=== PATIENT | male | born 1955 | race Caucasian/White ===

== ENCOUNTER 2019-08-15 10:17 | Emergency (ER) | payer BC ==
[~2019-08-15] VITALS: Ht 175.3 cm; Wt 107.3 kg
[~2019-08-15 10:17] MED LIST: ONDA4TAB12 PO; PANT20TA3 PO
[2019-08-15 11:37] LABS: BASOPHILS # (AUTO) 0.1 X10'3 (0-0.2); EOSINOPHILS # (AUTO) 0.4 X10'3 (0-0.9); EOSINOPHILS % (AUTO) 3.4 % (0-6); HEMATOCRIT 40.5 % (42.0-52.0); LYMPHOCYTES # (AUTO) 1.5 X10'3 (1.1-4.8); LYMPHOCYTES % (AUTO) 14.5 % (21-51); MEAN CORPUSCULAR HEMOGLOBIN 31.7 PG (27.0-31.0); MEAN CORPUSCULAR HGB CONC 34.5 g/dL (33.0-36.5); MEAN PLATELET VOLUME 8.6 FL (7.4-10.4); MONOCYTES # (AUTO) 0.8 X10'3 (0-0.9); MONOCYTES % (AUTO) 8.1 % (2-12); NEUTROPHILS # (AUTO) 7.6 X10'3 (1.8-7.7); PLATELET COUNT 264 X10'3 (140-440); RED BLOOD COUNT 4.41 X10'6 (4.70-6.10); RED CELL DISTRIBUTION WIDTH 13.1 % (11.5-14.5); WHITE BLOOD COUNT 10.4 X10'3 (4.5-11.0)
[2019-08-15 11:55] LABS: ALANINE AMINOTRANSFERASE 48 U/L (12-78); ALBUMIN/GLOBULIN RATIO 1.1 (1.1-1.5); ALKALINE PHOSPHATASE 84 IU/L (46-116); ANION GAP 10 (8-16); ASPARTATE AMINO TRANSFERASE 33 U/L (10-37); BILIRUBIN,TOTAL 0.6 MG/DL (0.1-1.0); BLOOD UREA NITROGEN 25 MG/DL (7-18); CALCIUM 9.2 MG/DL (8.5-10.1); CHLORIDE 106 MMOL/L (99-107); CREATININE 1.78 MG/DL (0.60-1.10); GLUCOSE 106 MG/DL (70-104); LIPASE 151 U/L (73-393); SODIUM 143 MMOL/L (135-145); TOTAL PROTEIN 7.7 G/DL (6.4-8.2); eGFR 39 ML/MIN
[2019-08-15] MEDS ORDERED: normal saline 1000ml 1,000 ML IV ONE (12:50)
[2019-08-15 13:25] LABS: CLARITY,URINE CLEAR (Clear); COLOR,URINE YELLOW (Yellow); GLUCOSE, URINE NEGATIVE (Neg); KETONES,URINE NEGATIVE (Neg); LEUKOCYTE ESTERASE ,URINE NEGATIVE (Neg); NITRITES, URINE NEGATIVE (Neg); OCCULT BLOOD,URINE NEGATIVE (Neg); PROTEIN,URINE NEGATIVE (Neg); UROBILINOGEN,URINE 0.2 E.U/dL (0.2-1.0)
[2019-08-15 13:28] LABS: UA COLLECTION TYPE CLN CATCH MIDSTREAM
[2019-08-15] MEDS ORDERED: HYDROcodone/acetaminophen 5mg/325mg tablet PO ONE (13:55)
[2019-08-15] MEDS ORDERED: ondansetron 4mg rapidly disintigrating tab PO ONE (13:55)
[2019-08-15] MEDS ORDERED: ONDA4TAB6 PO (14:24)
[2019-08-15 14:35] VITALS: BP 135/61
== END 2019-08-15 14:56 | disposition home or self-care (01) ==
LOC: ER 10:18
DX: R10.12 Left upper quadrant pain (principal); R11.2 Nausea with vomiting, unspecified; I10 Essential (primary) hypertension; K21.9 Gastro-esophageal reflux disease without esophagitis; G89.29 Other chronic pain; Z98.890 Other specified postprocedural states; Z79.899 Other long term (current) drug therapy
CPT/HCPCS: 36415; 74176; 80053; 81003; 83690; 85025; 96360; 99284; J7030

== ENCOUNTER 2021-06-18 00:50 | Emergency (ER) | payer BC ==
[~2021-06-18] VITALS: Ht 175.3 cm; Wt 102.3 kg
[~2021-06-18 00:50] MED LIST changes: +ONDA4TAB6 PO; +PANT20TA18 PO; -PANT20TA3 PO
[2021-06-18 01:31] LABS: BASOPHILS # (AUTO) 0.1 X10'3 (0-0.2); BASOPHILS % (AUTO) 0.7 % (0-1); EOSINOPHILS # (AUTO) 0.3 X10'3 (0-0.9); EOSINOPHILS % (AUTO) 2.1 % (0-6); HEMATOCRIT 36.1 % (42.0-52.0); HEMOGLOBIN 12.3 g/dl (14.0-17.9); LYMPHOCYTES # (AUTO) 2.4 X10'3 (1.1-4.8); LYMPHOCYTES % (AUTO) 16.7 % (21-51); MEAN CORPUSCULAR HEMOGLOBIN 30.5 PG (27.0-31.0); MEAN CORPUSCULAR VOLUME 89.6 FL (78-98); MEAN PLATELET VOLUME 7.4 FL (7.4-10.4); MONOCYTES # (AUTO) 1.4 X10'3 (0-0.9); MONOCYTES % (AUTO) 9.7 % (2-12); NEUTROPHILS % (AUTO) 70.8 % (42-75); PLATELET COUNT 332 X10'3 (140-440); RED BLOOD COUNT 4.03 X10'6 (4.70-6.10); RED CELL DISTRIBUTION WIDTH 13.6 % (11.5-14.5); WHITE BLOOD COUNT 14.2 X10'3 (4.5-11.0)
[2021-06-18 01:42] LABS: ALANINE AMINOTRANSFERASE 33 U/L (12-78); ALBUMIN 3.8 G/DL (3.4-5.0); ALBUMIN/GLOBULIN RATIO 1.1 (1.1-1.5); ALKALINE PHOSPHATASE 92 IU/L (46-116); ANION GAP 10 (8-16); ASPARTATE AMINO TRANSFERASE 19 U/L (10-37); BILIRUBIN,TOTAL 0.3 MG/DL (0.1-1.0); BLOOD UREA NITROGEN 32 MG/DL (7-18); BUN/CREATININE RATIO 15.2 (5.4-32.0); CALCIUM 8.7 MG/DL (8.5-10.1); CHLORIDE 103 MMOL/L (99-107); GLUCOSE 122 MG/DL (70-104); POTASSIUM 3.8 MMOL/L (3.5-5.1); SODIUM 139 MMOL/L (135-145); TOTAL CARBON DIOXIDE 25.8 MMOL/L (24-32); TOTAL PROTEIN 7.3 G/DL (6.4-8.2); eGFR 32 ML/MIN
[2021-06-18] MEDS ORDERED: normal saline 1000ml 1,000 ML IV ONE (03:00)
[2021-06-18 04:36] LABS: CLARITY,URINE CLEAR (Clear); COLOR,URINE YELLOW (Yellow); GLUCOSE, URINE NEGATIVE (Neg); KETONES,URINE NEGATIVE (Neg); LEUKOCYTE ESTERASE ,URINE NEGATIVE (Neg); NITRITES, URINE NEGATIVE (Neg); OCCULT BLOOD,URINE NEGATIVE (Neg); PROTEIN,URINE NEGATIVE (Neg); UROBILINOGEN,URINE 0.2 E.U/dL (0.2-1.0)
[2021-06-18 04:46] LABS: UA COLLECTION TYPE URINAL
[2021-06-18] MEDS ORDERED: METO-292 PO (05:27)
[2021-06-18] MEDS ORDERED: MELA10TA2 PO (05:27)
[2021-06-18 06:17] VITALS: BP 159/72
== END 2021-06-18 06:18 | disposition home or self-care (01) ==
LOC: ER 00:50
DX: G47.00 Insomnia, unspecified (principal); Z20.822 Contact with and (suspected) exposure to COVID-19; R11.2 Nausea with vomiting, unspecified; R51.9 Headache, unspecified; R10.84 Generalized abdominal pain; K21.9 Gastro-esophageal reflux disease without esophagitis; G89.29 Other chronic pain; Z98.890 Other specified postprocedural states; Z72.89 Other problems related to lifestyle; Z79.899 Other long term (current) drug therapy
CPT/HCPCS: 36415; 71045; 74176; 80053; 81003; 83880; 84484; 85025; 87635; 93005; 99285; C9803; J7030

== ENCOUNTER 2021-06-18 13:07 | Emergency (ER) | payer BC ==
[~2021-06-18] VITALS: Ht 175.3 cm; Wt 102.3 kg
[~2021-06-18 13:07] MED LIST changes: +MELA10TA2 PO; +METO-292 PO
[2021-06-18 13:58] LABS: BASOPHILS # (AUTO) 0.1 X10'3 (0-0.2); BASOPHILS % (AUTO) 0.5 % (0-1); EOSINOPHILS # (AUTO) 0.2 X10'3 (0-0.9); EOSINOPHILS % (AUTO) 1.3 % (0-6); HEMATOCRIT 38.3 % (42.0-52.0); HEMOGLOBIN 12.7 g/dl (14.0-17.9); LYMPHOCYTES # (AUTO) 1.8 X10'3 (1.1-4.8); LYMPHOCYTES % (AUTO) 13.8 % (21-51); MEAN CORPUSCULAR HEMOGLOBIN 30.1 PG (27.0-31.0); MEAN CORPUSCULAR HGB CONC 33.1 g/dL (33.0-36.5); MEAN CORPUSCULAR VOLUME 90.9 FL (78-98); MEAN PLATELET VOLUME 7.7 FL (7.4-10.4); MONOCYTES # (AUTO) 1.2 X10'3 (0-0.9); MONOCYTES % (AUTO) 9.2 % (2-12); NEUTROPHILS # (AUTO) 9.6 X10'3 (1.8-7.7); NEUTROPHILS % (AUTO) 75.2 % (42-75); PLATELET COUNT 321 X10'3 (140-440); RED BLOOD COUNT 4.21 X10'6 (4.70-6.10); RED CELL DISTRIBUTION WIDTH 13.7 % (11.5-14.5); WHITE BLOOD COUNT 12.8 X10'3 (4.5-11.0)
[2021-06-18 14:07] LABS: ALANINE AMINOTRANSFERASE 42 U/L (12-78); ALBUMIN 3.9 G/DL (3.4-5.0); ALBUMIN/GLOBULIN RATIO 1.1 (1.1-1.5); ALKALINE PHOSPHATASE 98 IU/L (46-116); ANION GAP 9 (8-16); ASPARTATE AMINO TRANSFERASE 23 U/L (10-37); BILIRUBIN,TOTAL 0.6 MG/DL (0.1-1.0); BLOOD UREA NITROGEN 28 MG/DL (7-18); BUN/CREATININE RATIO 15.2 (5.4-32.0); CALCIUM 8.7 MG/DL (8.5-10.1); CHLORIDE 104 MMOL/L (99-107); CREATININE 1.84 MG/DL (0.60-1.10); GLUCOSE 102 MG/DL (70-104); POTASSIUM 4.5 MMOL/L (3.5-5.1); SODIUM 141 MMOL/L (135-145); TOTAL CARBON DIOXIDE 27.7 MMOL/L (24-32); TOTAL PROTEIN 7.5 G/DL (6.4-8.2); eGFR 37 ML/MIN
[2021-06-18] MEDS ORDERED: diphenhydrAMINE 50 mg/ml inj IV ONE (15:40)
[2021-06-18] MEDS ORDERED: normal saline 1000ML IV soln IVB ONE (15:40)
[2021-06-18] MEDS ORDERED: metoclopramide 5 mg/ml inj IV ONE (15:40)
[2021-06-18] MEDS ORDERED: ketorolac tromethamine 15mg/ml inj. IV ONE (15:40)
--- NOTE | 2021-06-18 17:30 | NUR ---
Pt given and understands d/c instructions. IV d/c'd, catheter was intact. Ambulatory with a cane. Decreased ANN.
[2021-06-18 18:03] VITALS: BP 126/89
== END 2021-06-18 18:04 | disposition home or self-care (01) ==
LOC: ER 13:07
DX: R11.2 Nausea with vomiting, unspecified (principal); R51.9 Headache, unspecified; R50.9 Fever, unspecified; R05.9 Cough, unspecified; E86.0 Dehydration; K21.9 Gastro-esophageal reflux disease without esophagitis; G89.29 Other chronic pain; I10 Essential (primary) hypertension; Z72.89 Other problems related to lifestyle; Z79.899 Other long term (current) drug therapy
CPT/HCPCS: 36415; 70450; 80053; 83880; 84484; 85025; 93005; 96361; 96374; 96375; 99285; J1200; J1885; J2765; J7030; 99284

== ENCOUNTER 2021-08-14 23:59 | Inpatient (IN) | payer BC ==
[~2021-08-14] VITALS: Ht 175.3 cm; Wt 99.4 kg
[2021-08-15 01:53] LABS: URINE AMPHETAMINE SCREEN NEGATIVE (Neg); URINE BARBITUATE SCREEN NEGATIVE (Neg); URINE BENZODIAZEPINES SCREEN NEGATIVE (Neg); URINE CANNABINOID SCREEN NEGATIVE (Neg); URINE COCAINE SCREEN NEGATIVE (Neg); URINE METHADONE SCREEN NEGATIVE (Neg); URINE OPIATE SCREEN NEGATIVE (Neg); URINE PHENCYCLIDINE SCREEN NEGATIVE (Neg)
[2021-08-15] MEDS ORDERED: ondansetron/PF 4mg/2ml inj IV ONE ×2 (05:05→06:25)
[2021-08-15] MEDS ORDERED: normal saline 1000ML IV soln IVB ONE ×2 (05:05→12:10)
[2021-08-15] MEDS ORDERED: morphine 4 MG/ML inj SYRINge IV ONE ×2 (05:05→06:25)
[2021-08-15] MEDS ORDERED: iohexol 350MG/ML 100ml bottle IV ONE (05:11)
--- NOTE | 2021-08-15 07:00 | NUR ---
FIRST CONTACT WITH PT. FOUND SUPINE IN BED, REPORTS LOWER ABD PAIN /. TENDER TO PALPATION, MD INFORMED. MEDICATED WITH MORPHINE, PER EMAR. LABS DRAWN. WILL RE-ASSESS.
[2021-08-15 07:19] LABS: BASOPHILS # (AUTO) 0.1 X10'3 (0-0.2); BASOPHILS % (AUTO) 0.8 % (0-1); EOSINOPHILS # (AUTO) 0.2 X10'3 (0-0.9); EOSINOPHILS % (AUTO) 1.8 % (0-6); HEMATOCRIT 34.2 % (42.0-52.0); HEMOGLOBIN 11.6 g/dl (14.0-17.9); LYMPHOCYTES # (AUTO) 2.2 X10'3 (1.1-4.8); LYMPHOCYTES % (AUTO) 17.2 % (21-51); MEAN CORPUSCULAR HEMOGLOBIN 30.5 PG (27.0-31.0); MEAN CORPUSCULAR VOLUME 89.6 FL (78-98); MEAN PLATELET VOLUME 7.3 FL (7.4-10.4); MONOCYTES # (AUTO) 1.4 X10'3 (0-0.9); MONOCYTES % (AUTO) 10.7 % (2-12); NEUTROPHILS # (AUTO) 9.1 X10'3 (1.8-7.7); NEUTROPHILS % (AUTO) 69.5 % (42-75); PLATELET COUNT 299 X10'3 (140-440); RED BLOOD COUNT 3.82 X10'6 (4.70-6.10); RED CELL DISTRIBUTION WIDTH 13.3 % (11.5-14.5)
[2021-08-15] MEDS ORDERED: normal saline 1000ml 1,000 ML IV ONE (07:25)
[2021-08-15 07:49] LABS: ALANINE AMINOTRANSFERASE 38 U/L (12-78); ALBUMIN 3.7 G/DL (3.4-5.0); ALBUMIN/GLOBULIN RATIO 1.2 (1.1-1.5); ALKALINE PHOSPHATASE 80 IU/L (46-116); ANION GAP 6 (8-16); ASPARTATE AMINO TRANSFERASE 27 U/L (10-37); BILIRUBIN,TOTAL 0.5 MG/DL (0.1-1.0); BLOOD UREA NITROGEN 25 MG/DL (7-18); BUN/CREATININE RATIO 15.4 (5.4-32.0); CALCIUM 8.7 MG/DL (8.5-10.1); CHLORIDE 95 MMOL/L (99-107); CREATININE 1.62 MG/DL (0.60-1.10); GLUCOSE 92 MG/DL (70-104); POTASSIUM 4.7 MMOL/L (3.5-5.1); SODIUM 126 MMOL/L (135-145); TOTAL CARBON DIOXIDE 25.4 MMOL/L (24-32); TOTAL PROTEIN 6.9 G/DL (6.4-8.2); eGFR 43 ML/MIN
[2021-08-15 07:52] LABS: ETHANOL < 0.010 GM/DL (0.0-0.010)
[2021-08-15 07:56] LABS: CLARITY,URINE CLEAR (Clear); COLOR,URINE YELLOW (Yellow); GLUCOSE, URINE NEGATIVE (Neg); KETONES,URINE NEGATIVE (Neg); LEUKOCYTE ESTERASE ,URINE NEGATIVE (Neg); NITRITES, URINE NEGATIVE (Neg); OCCULT BLOOD,URINE NEGATIVE (Neg); PH,URINE 6.5 (4.8-8.0); PROTEIN,URINE NEGATIVE (Neg); UROBILINOGEN,URINE 0.2 E.U/dL (0.2-1.0)
[2021-08-15 08:04] LABS: UA COLLECTION TYPE CLN CATCH MIDSTREAM
[2021-08-15 11:42] LABS: D-DIMER 1.65 MG/L FEU (0-0.50)
[2021-08-15] MEDS ORDERED: magnesium 2GM in 50ml NS 50 ML IV PRN (12:45)
[2021-08-15] MEDS ORDERED: potassium Cl 20 mEq SR tablet PO PRN ×2 (12:45)
[2021-08-15] MEDS: normal saline 1000ml 1,000 ML IV SCH ×2 (12:45→16:56)
[2021-08-15] MEDS ORDERED: magnesium hydroxide 30ml (MOM) UD suspension PO PRN (12:45)
[2021-08-15] MEDS ORDERED: magnesium 4gm in 100ml NS 100 ML IV PRN (12:45)
[2021-08-15] MEDS ORDERED: mag hydrox/Alum hydrox/simeth 30ml oral suspension PO PRN (12:45)
[2021-08-15] MEDS ORDERED: ondansetron/PF 4mg/2ml inj IV PRN (12:45)
[2021-08-15] MEDS ORDERED: potassium CL 10mEq/100ml bag 100 ML IV PRN (12:45)
--- NOTE | 2021-08-15 12:52 | NUR ---
pt to IR for lumbar punture
--- NOTE | 2021-08-15 13:58 | NUR ---
PT RETURNED FROM IR, MUST REMAIN SUPINE UNTIL 1630
[2021-08-15 14:19] LABS: GLUCOSE,CSF 58 MG/DL (40-75); TOTAL PROTEIN,CSF 45 MG/DL (30-60)
--- NOTE | 2021-08-15 14:45 | NUR ---
Patient in room [facility]. I have received report from KYLIE BEAVERS and had the opportunity to ask questions and assume patient care.
[2021-08-15 15:27] LABS: APPEARANCE,CSF HAZY
[2021-08-15 15:28] LABS: TUBE# COUNTED 2
[2021-08-15 15:31] LABS: CSF RBC 1348 /CU MM (0); MONOCYTES,CSF 5 % (15-45); NEUTRO,CSF 95 % (0-6)
[2021-08-15 15:35] LABS: CSF WBC CT 65 /CU MM (0-5)
[2021-08-15 15:36] LABS: APPEARANCE,CSF CLEAR; CSF RBC 180 /CU MM (0); CSF SUPERNATANT COLOR COLORLESS; CSF SUPERNATANT COLOR PINK; CSF WBC CT 1 /CU MM (0-5); TUBE# COUNTED 1
--- NOTE | 2021-08-15 15:39 | NUR ---
PAGER ID: [phone] MESSAGE: NIDHI FREDDY 344B: CRITICAL CSF 1ST TUBE 200ML 1WBC, 180 RBC; 2ND TUBE 0.5ML 65 WBC, 1348 RBC, 95% NEUTROPHILS, 5% MONOCYTES. THANK YOU EMILEE [id number]
[2021-08-15] MEDS ORDERED: hydrALAZINE 20mg/ml inj. IV PRN (15:55)
[2021-08-15] MEDS ORDERED: BUPR-317 PO (15:56)
[2021-08-15] MEDS ORDERED: OMEP40CA21 PO (15:56)
[2021-08-15] MEDS ORDERED: MILK1TAB PO (15:56)
[2021-08-15] MEDS ORDERED: LISI1TAB51 PO (15:56)
[2021-08-15] MEDS ORDERED: ASPI-500 PO (15:56)
[2021-08-15] MEDS ORDERED: ACET-2389 PO (15:56)
[2021-08-15] MEDS ORDERED: AMIT25TA9 PO (15:56)
[2021-08-15] MEDS ORDERED: ACETAMINOPHEN PO PRN (16:05)
[2021-08-15] MEDS: piperacillin/tazo 4.5gm/100ml 100 ML IV SCH ×2 (16:56→23:29)
[2021-08-15 18:00] VITALS: BP 125/48
--- NOTE | 2021-08-15 18:45 | NUR ---
Problems reprioritized. Patient report given, questions answered & plan of care reviewed with KYLIE VINCENT.
[2021-08-15] MEDS: K and/or MAG REPLACEMENT MC SCH (19:55)
[2021-08-15] MEDS: docusate sod 100mg capsule PO SCH (20:00)
[2021-08-15] MEDS ORDERED: enoxaparin 40mg/0.4ml syringe SQ SCH (20:00)
[2021-08-15] MEDS: diatr meglu/diatrizoate 30ml oral sol.-(3 dose) bottle PO SCH (20:55)
[2021-08-15] MEDS: benzocaine/benzethon 30gm ointment RC PRN (20:56)
[2021-08-15] MEDS: amitriptyline 25mg tablet PO SCH (20:56)
[2021-08-16] VITALS: BP 110/57
[2021-08-16] MEDS: normal saline 1000ml 1,000 ML IV SCH ×2 (05:15→20:20)
[2021-08-16 06:36] LABS: BASOPHILS # (AUTO) 0.1 X10'3 (0-0.2); BASOPHILS % (AUTO) 1.1 % (0-1); EOSINOPHILS # (AUTO) 0.2 X10'3 (0-0.9); EOSINOPHILS % (AUTO) 2.7 % (0-6); HEMATOCRIT 30.6 % (42.0-52.0); HEMOGLOBIN 10.4 g/dl (14.0-17.9); LYMPHOCYTES # (AUTO) 1.7 X10'3 (1.1-4.8); LYMPHOCYTES % (AUTO) 18.8 % (21-51); MEAN CORPUSCULAR HGB CONC 34.1 g/dL (33.0-36.5); MEAN CORPUSCULAR VOLUME 90.9 FL (78-98); MEAN PLATELET VOLUME 7.5 FL (7.4-10.4); MONOCYTES # (AUTO) 1.2 X10'3 (0-0.9); MONOCYTES % (AUTO) 12.9 % (2-12); NEUTROPHILS # (AUTO) 5.8 X10'3 (1.8-7.7); NEUTROPHILS % (AUTO) 64.5 % (42-75); PLATELET COUNT 276 X10'3 (140-440); RED BLOOD COUNT 3.37 X10'6 (4.70-6.10); RED CELL DISTRIBUTION WIDTH 13.5 % (11.5-14.5)
--- NOTE | 2021-08-16 06:48 | NUR ---
Patient in room [facility]. I have received report from Nga ESPINAL Traveler and had the opportunity to ask questions and assume patient care.
[2021-08-16 06:54] LABS: ALANINE AMINOTRANSFERASE 34 U/L (12-78); ALBUMIN 3.2 G/DL (3.4-5.0); ALBUMIN/GLOBULIN RATIO 1.3 (1.1-1.5); ALKALINE PHOSPHATASE 77 IU/L (46-116); ANION GAP 9 (8-16); ASPARTATE AMINO TRANSFERASE 22 U/L (10-37); BILIRUBIN,TOTAL 0.5 MG/DL (0.1-1.0); BLOOD UREA NITROGEN 23 MG/DL (7-18); BUN/CREATININE RATIO 13.3 (5.4-32.0); CALCIUM 8.5 MG/DL (8.5-10.1); CHLORIDE 101 MMOL/L (99-107); CREATININE 1.73 MG/DL (0.60-1.10); GLUCOSE 79 MG/DL (70-104); MAGNESIUM 2.1 MG/DL (1.5-2.4); POTASSIUM 5.5 MMOL/L (3.5-5.1); SODIUM 134 MMOL/L (135-145); TOTAL CARBON DIOXIDE 24.4 MMOL/L (24-32); TOTAL PROTEIN 5.6 G/DL (6.4-8.2); eGFR 40 ML/MIN
[2021-08-16] MEDS: piperacillin/tazo 4.5gm/100ml 100 ML IV SCH (07:52)
[2021-08-16] MEDS: docusate sod 100mg capsule PO SCH ×2 (07:52→20:20)
[2021-08-16] MEDS: buPROPion SR 150mg tablet PO SCH (07:53)
[2021-08-16] MEDS: pantoprazole 40mg Tablet.DR PO SCH (07:53)
[2021-08-16] MEDS: HYDROchlorothiazide 12.5mg capsule PO SCH (07:54)
[2021-08-16] MEDS: diatr meglu/diatrizoate 30ml oral sol.-(3 dose) bottle PO SCH (07:55)
[2021-08-16 08:00] VITALS: BP 145/70
[2021-08-16] MEDS ORDERED: lisinopril 20mg tablet PO SCH (08:00)
[2021-08-16] MEDS ORDERED: non-formulary drug (Omeprazole (Prilosec) 1 CAP) PO SCH (08:00)
[2021-08-16] MEDS: K and/or MAG REPLACEMENT MC SCH ×2 (08:00→20:00)
[2021-08-16 11:00] VITALS: BP 118/58
--- NOTE | 2021-08-16 11:51 | NUR ---
Juan Daniel Sahil#[id number]- Pt needs the 3rd dose of gastrografin before his CT scan. Pt's order says only two doses needed. Can you call me to clarify this order so I can give meds to get ct done. thank you Marielle Mann [phone]
[2021-08-16] MEDS ORDERED: diatrozoate meglu/diatrozoate sod (37% iodine) 120ML oral solution PO ONE (12:05)
[2021-08-16] MEDS ORDERED: piperacillin/tazo 3.375gm/50ml 50 ML IV SCH (16:00)
[2021-08-16 18:00] VITALS: BP 138/63
--- NOTE | 2021-08-16 18:38 | NUR ---
Problems reprioritized. Patient report given, questions answered & plan of care reviewed with Sofiya RN traveler.
[2021-08-16] MEDS: amitriptyline 25mg tablet PO SCH (20:20)
[2021-08-16] MEDS: lactulose 20gm/30ml cup PO SCH (20:20)
[2021-08-16] MEDS: lactobacillus rhamnosus 10,000 MMU CELLS/CAPSULE PO SCH (20:20)
[2021-08-16] MEDS: acetaminophen 325mg tablet PO PRN (21:15)
[2021-08-16] MEDS: mineral oil 133ml enema RC SCH (21:17)
[2021-08-17] VITALS: BP 126/61
[2021-08-17] MEDS: benzocaine/benzethon 30gm ointment RC PRN (01:17)
[2021-08-17] MEDS: lactulose 20gm/30ml cup PO SCH ×4 (01:20→20:00)
[2021-08-17] MEDS: normal saline 1000ml 1,000 ML IV SCH ×2 (03:53→14:42)
[2021-08-17 07:06] LABS: BASOPHILS # (AUTO) 0.1 X10'3 (0-0.2); BASOPHILS % (AUTO) 1.3 % (0-1); EOSINOPHILS # (AUTO) 0.3 X10'3 (0-0.9); EOSINOPHILS % (AUTO) 3.6 % (0-6); HEMATOCRIT 30.9 % (42.0-52.0); HEMOGLOBIN 10.6 g/dl (14.0-17.9); LYMPHOCYTES # (AUTO) 1.7 X10'3 (1.1-4.8); LYMPHOCYTES % (AUTO) 19.4 % (21-51); MEAN CORPUSCULAR HEMOGLOBIN 31.2 PG (27.0-31.0); MEAN CORPUSCULAR HGB CONC 34.3 g/dL (33.0-36.5); MEAN CORPUSCULAR VOLUME 91.1 FL (78-98); MEAN PLATELET VOLUME 7.7 FL (7.4-10.4); MONOCYTES # (AUTO) 1.1 X10'3 (0-0.9); MONOCYTES % (AUTO) 12.9 % (2-12); NEUTROPHILS # (AUTO) 5.4 X10'3 (1.8-7.7); NEUTROPHILS % (AUTO) 62.8 % (42-75); PLATELET COUNT 265 X10'3 (140-440); RED BLOOD COUNT 3.39 X10'6 (4.70-6.10); RED CELL DISTRIBUTION WIDTH 13.6 % (11.5-14.5); WHITE BLOOD COUNT 8.6 X10'3 (4.5-11.0)
[2021-08-17 07:37] LABS: ALANINE AMINOTRANSFERASE 33 U/L (12-78); ALBUMIN/GLOBULIN RATIO 1.1 (1.1-1.5); ALKALINE PHOSPHATASE 75 IU/L (46-116); ANION GAP 8 (8-16); ASPARTATE AMINO TRANSFERASE 19 U/L (10-37); BILIRUBIN,TOTAL 0.3 MG/DL (0.1-1.0); BLOOD UREA NITROGEN 19 MG/DL (7-18); CALCIUM 8.2 MG/DL (8.5-10.1); CHLORIDE 104 MMOL/L (99-107); CREATININE 1.58 MG/DL (0.60-1.10); GLUCOSE 92 MG/DL (70-104); MAGNESIUM 1.9 MG/DL (1.5-2.4); SODIUM 135 MMOL/L (135-145); TOTAL CARBON DIOXIDE 23.5 MMOL/L (24-32); TOTAL PROTEIN 5.8 G/DL (6.4-8.2); eGFR 44 ML/MIN
[2021-08-17] MEDS: buPROPion SR 150mg tablet PO SCH (07:58)
[2021-08-17] MEDS: pantoprazole 40mg Tablet.DR PO SCH (07:59)
[2021-08-17] MEDS: lactobacillus rhamnosus 10,000 MMU CELLS/CAPSULE PO SCH ×2 (07:59→20:00)
[2021-08-17] MEDS: docusate sod 100mg capsule PO SCH ×2 (07:59→20:00)
[2021-08-17] MEDS: HYDROchlorothiazide 12.5mg capsule PO SCH (07:59)
[2021-08-17] MEDS: K and/or MAG REPLACEMENT MC SCH ×2 (08:10→20:00)
[2021-08-17] MEDS ORDERED: magnesium citrate 296ml oral solution PO ONE (08:55)
[2021-08-17] MEDS ORDERED: bisacodyl 10mg suppository rectal RC STA (10:58)
[2021-08-17] MEDS: acetaminophen 325mg tablet PO PRN (14:40)
[2021-08-17] MEDS: mineral oil 133ml enema RC SCH (18:05)
[2021-08-17] MEDS ORDERED: LORazepam 2 mg/ml vial IV PRN (18:10)
--- NOTE | 2021-08-17 18:29 | NUR ---
CALLED RAPID RESPONSE ON PATIENT DUE TO HIM COMPLAINING OF CHEST PAIN. PATIENTS VITALS WNL, OXYGENATION 100%, EKG NSR, TROPONINS DRAWN. DR HERNANDEZ CAME AND STATED PATIENT WAS HAVING AN ANXIETY ATTACK AND ORDERED 1MG ATIVAN. HE CALMED DOWN AND IS RESTING WELL
[2021-08-17] MEDS ORDERED: LORA-269 PO (18:54)
[2021-08-17] MEDS: amitriptyline 25mg tablet PO SCH (21:21)
[2021-08-22] MEDS ORDERED: AMIT25TA9 PO (14:11)
[2021-08-22] MEDS ORDERED: ONDA4TAB12 PO (14:11)
[2021-08-22] MEDS ORDERED: MELA3TAB39 PO (14:11)
[2021-08-22] MEDS ORDERED: OMEP40CA21 PO (14:11)
[2021-08-22] MEDS ORDERED: LISI1TAB51 PO (14:11)
[2021-08-22] MEDS ORDERED: ESCI5TAB PO (14:11)
== END 2021-08-17 21:55 | disposition home or self-care (01) | DRG 103 ==
LOC: ER 23:59 → ED HOLD 08-15 12:50 → SUR 3N 08-15 15:00
PROVIDERS: ADMIT Family Medicine; ATTEND Family Medicine
PROC: 009U3ZX Drainage of Spinal Canal, Percutaneous Approach, Diagnostic (ICD-10-PCS; principal; 2021-08-15)
PROC: B01B1ZZ Fluoroscopy of Spinal Cord using Low Osmolar Contrast (ICD-10-PCS; 2021-08-15)
PROC: B3251ZZ Computerized Tomography (CT Scan) of Bilateral Common Carotid Arteries using Low Osmolar Contrast (ICD-10-PCS; 2021-08-15)
PROC: B32G1ZZ Computerized Tomography (CT Scan) of Bilateral Vertebral Arteries using Low Osmolar Contrast (ICD-10-PCS; 2021-08-15)
PROC: B32R1ZZ Computerized Tomography (CT Scan) of Intracranial Arteries using Low Osmolar Contrast (ICD-10-PCS; 2021-08-15)
PROC: B3281ZZ Computerized Tomography (CT Scan) of Bilateral Internal Carotid Arteries using Low Osmolar Contrast (ICD-10-PCS; 2021-08-15)
DX: R51.9 Headache, unspecified (principal); E87.1 Hypo-osmolality and hyponatremia; K56.41 Fecal impaction; D72.823 Leukemoid reaction; Z20.822 Contact with and (suspected) exposure to COVID-19; F32.A Depression, unspecified; F41.0 Panic disorder [episodic paroxysmal anxiety]; Z96.643 Presence of artificial hip joint, bilateral; G89.29 Other chronic pain; K21.9 Gastro-esophageal reflux disease without esophagitis; M54.9 Dorsalgia, unspecified; R70.0 Elevated erythrocyte sedimentation rate; I12.9 Hypertensive chronic kidney disease with stage 1 through stage 4 chronic kidney disease, or unspecified chronic kidney disease; M54.2 Cervicalgia; N18.9 Chronic kidney disease, unspecified; M19.90 Unspecified osteoarthritis, unspecified site; Z79.82 Long term (current) use of aspirin; Z80.1 Family history of malignant neoplasm of trachea, bronchus and lung; Z82.0 Family history of epilepsy and other diseases of the nervous system; Z85.46 Personal history of malignant neoplasm of prostate; Z87.891 Personal history of nicotine dependence; Z88.8 Allergy status to other drugs, medicaments and biological substances; Z79.899 Other long term (current) drug therapy; E87.5 Hyperkalemia; R07.9 Chest pain, unspecified
CPT/HCPCS: 36415; 62328; 70450; 70496; 70498; 71045; 74018; 74176; 77003; 80053; 80305; 80320; 81003; 82140; 82945; 82948; 83605; 83735; 84145; 84157; 84484; 85025; 85379; 85651; 86140; 87015; 87040; 87070; 87529; 87635; 89051; 93005; 93880; 99291; C9803; G0378; J2060; J2270; J2405; J2543; J7030; Q9963; Q9967

== ENCOUNTER 2021-08-25 05:45 | Emergency (ER) | payer BC ==
[~2021-08-25] VITALS: Ht 175.3 cm; Wt 84.5 kg
[~2021-08-25 05:45] MED LIST changes: +ACET-2389 PO; +AMIT25TA9 PO; +ASPI-500 PO; +ESCI5TAB PO; +LISI1TAB51 PO; -MELA10TA2 PO; +MELA3TAB39 PO; -METO-292 PO; +MILK1TAB PO; +OMEP40CA21 PO; -ONDA4TAB6 PO; -PANT20TA18 PO
[2021-08-25] MEDS ORDERED: ondansetron/PF 4mg/2ml inj IV ONE (07:45)
[2021-08-25] MEDS ORDERED: pantoprazole 40MG/D5 100ML BAG 100 ML IV ONE (07:45)
[2021-08-25] MEDS ORDERED: normal saline 1000ML IV soln IVB ONE (07:45)
[2021-08-25] MEDS ORDERED: famotidine/PF 10 mg/ml inj IV ONE (07:45)
[2021-08-25] MEDS ORDERED: loperamide 2mg capsule PO ONE (07:45)
[2021-08-25] MEDS ORDERED: pantoprazole 40MG/NS 100ML BAG 100 ML IV ONE (07:53)
[2021-08-25 08:22] LABS: CLARITY,URINE CLEAR (Clear); COLOR,URINE YELLOW (Yellow); GLUCOSE, URINE NEGATIVE (Neg); KETONES,URINE NEGATIVE (Neg); LEUKOCYTE ESTERASE ,URINE NEGATIVE (Neg); NITRITES, URINE NEGATIVE (Neg); OCCULT BLOOD,URINE NEGATIVE (Neg); PROTEIN,URINE NEGATIVE (Neg); UROBILINOGEN,URINE 0.2 E.U/dL (0.2-1.0)
[2021-08-25 08:24] LABS: UA COLLECTION TYPE CLN CATCH MIDSTREAM
[2021-08-25 08:40] LABS: BASOPHILS % (AUTO) 0.5 % (0-1); EOSINOPHILS # (AUTO) 0.2 X10'3 (0-0.9); EOSINOPHILS % (AUTO) 1.7 % (0-6); HEMATOCRIT 35.6 % (42.0-52.0); HEMOGLOBIN 12.4 g/dl (14.0-17.9); LYMPHOCYTES # (AUTO) 1.5 X10'3 (1.1-4.8); MEAN CORPUSCULAR HEMOGLOBIN 30.8 PG (27.0-31.0); MEAN CORPUSCULAR HGB CONC 34.8 g/dL (33.0-36.5); MEAN CORPUSCULAR VOLUME 88.7 FL (78-98); MEAN PLATELET VOLUME 7.4 FL (7.4-10.4); MONOCYTES # (AUTO) 1.1 X10'3 (0-0.9); MONOCYTES % (AUTO) 11.5 % (2-12); NEUTROPHILS # (AUTO) 6.3 X10'3 (1.8-7.7); NEUTROPHILS % (AUTO) 69.3 % (42-75); PLATELET COUNT 374 X10'3 (140-440); RED BLOOD COUNT 4.02 X10'6 (4.70-6.10); RED CELL DISTRIBUTION WIDTH 13.6 % (11.5-14.5); WHITE BLOOD COUNT 9.1 X10'3 (4.5-11.0)
[2021-08-25 09:14] LABS: ALANINE AMINOTRANSFERASE 29 U/L (12-78); ALBUMIN 3.7 G/DL (3.4-5.0); ALBUMIN/GLOBULIN RATIO 0.9 (1.1-1.5); ALKALINE PHOSPHATASE 96 IU/L (46-116); ANION GAP 11 (8-16); ASPARTATE AMINO TRANSFERASE 20 U/L (10-37); BILIRUBIN,TOTAL 0.4 MG/DL (0.1-1.0); BLOOD UREA NITROGEN 26 MG/DL (7-18); CALCIUM 9.4 MG/DL (8.5-10.1); CHLORIDE 96 MMOL/L (99-107); CREATININE 1.63 MG/DL (0.60-1.10); GLUCOSE 94 MG/DL (70-104); SODIUM 132 MMOL/L (135-145); TOTAL CARBON DIOXIDE 25.4 MMOL/L (24-32); TOTAL PROTEIN 7.7 G/DL (6.4-8.2); eGFR 43 ML/MIN
[2021-08-25 09:22] LABS: LIPASE 94 U/L (73-393)
[2021-08-25 10:01] VITALS: BP 144/81
[2021-08-25] MEDS ORDERED: LOPE2CAP PO ×2 (10:45→10:48)
[2021-08-25] MEDS ORDERED: acetaminophen 325mg tablet PO ONE (10:45)
[2021-08-25] MEDS ORDERED: ONDA8TAB13 PO (10:45)
[2021-08-25] MEDS ORDERED: proCHLORperazine 10 MG/2 ml inj IV ONE (10:45)
[2021-08-25] MEDS ORDERED: ketorolac trometh. 30mg/ml inj. IV ONE (10:45)
[2021-08-25] MEDS ORDERED: ACET-1025 PO ×2 (10:45→10:48)
[2021-08-25] MEDS ORDERED: ONDA-104 PO (10:48)
== END 2021-08-25 12:28 | disposition home or self-care (01) ==
LOC: ER 05:45
DX: U07.1 COVID-19 (principal); R11.2 Nausea with vomiting, unspecified; R19.7 Diarrhea, unspecified; R42 Dizziness and giddiness; I10 Essential (primary) hypertension; K21.9 Gastro-esophageal reflux disease without esophagitis; G89.29 Other chronic pain; Z72.89 Other problems related to lifestyle; Z88.8 Allergy status to other drugs, medicaments and biological substances; Z79.82 Long term (current) use of aspirin; Z79.899 Other long term (current) drug therapy
CPT/HCPCS: 36415; 71045; 80053; 80329; 81003; 83690; 83735; 84484; 85025; 87635; 93005; 96361; 96374; 96375; 99285; C9113; C9803; J0780; J1885; J2405; J3490; J7030; 96365; 96366